=== PATIENT | female | born 1980 | race Caucasian/White ===

== ENCOUNTER 2024-07-30 15:33 | Outpatient (CLI) | payer OTHER | END 2024-07-30 16:50 | disposition home or self-care (01) | LOC: NST 15:33 | PROVIDERS: ATTEND Obstetrics & Gynecology Gynecology | DX: Z34.83 Encounter for supervision of other normal pregnancy, third trimester (principal) ==

== ENCOUNTER → 2024-08-19 13:36 | Outpatient (CLI) | payer OTHER | END | disposition home or self-care (01) | LOC: NST 13:36 | PROVIDERS: ATTEND Obstetrics & Gynecology Maternal & Fetal Medicine | DX: Z34.83 Encounter for supervision of other normal pregnancy, third trimester (principal) ==

== ENCOUNTER 2024-09-04 13:16 | Inpatient (IN) | payer OTHER ==
[~2024-09-04] VITALS: Ht 167.6 cm; Wt 104.3 kg
[2024-09-04] MEDS ORDERED: BETAMETHASONE ACETATE,SOD PHOS 30 MG/5 ML ML IM NR (15:15)
[2024-09-04] MEDS ORDERED: RINGERS SOLUTION,LACTATED 1,000 ML IV SCH (15:15)
[2024-09-04 15:26] VITALS: BP 130/82
[2024-09-04 16:20] LABS: HEMATOCRIT 36.4 % (36.0-45.00); HEMOGLOBIN 12.3 g/dL (12.0-15.00); MEAN CELL VOLUME 80.7 fL (80.00-100.00); MEAN CORPUSCULAR HEMOGLOBIN 27.3 pg (27.00-32.0); MEAN CORPUSCULAR HGB CONC 33.8 g/dl (32.0-36.0); PLATELET COUNT 205 K/uL (150-450); RED BLOOD COUNT 4.52 M/uL (4.00-6.00); RED CELL DISTRIBUTION WIDTH 15.7 % (11.5-14.5)
[2024-09-04 16:23] LABS: URINE APPEARANCE Clear; URINE BACTERIA 179.9 uL (0.0-1933); URINE BILIRRUBIN Negative (NEGATIVE); URINE BLOOD Negative; URINE COLOR Yellow; URINE EPITHELIAL CELLS 4.9 uL (0.0-38.8); URINE GLUCOSE Negative (NEGATIVE); URINE KETONE Negative (NEGATIVE); URINE LEUKOCYTE Negative; URINE NITRATE Negative; URINE PROTEIN Negative (NEGATIVE); URINE UROBILINOGEN 0.2 E.U./dl; URINE WBC 7.7 uL (0.0-23.2)
[2024-09-04 16:32] LABS: INR < 0.93; PARTIAL THROMBOPLASTIN TIME 25.1 SECONDS (22.0-34.0)
[2024-09-04 16:40] LABS: ALBUMIN 2.8 gm/dL (3.4-5.0); BILIRUBIN TOTAL 0.27 mg/dL (0.3-1.2); CALCIUM 9.9 mg/dL (8.5-10.1); CREATININE SERUM 0.59 mg/dL (0.55-1.02); GFR 109.73; GLOBULINA 3.5 G/DL (2.4-3.5); POTASSIUM 4.08 mEq/L (3.5-5.1); TOTAL PROTEIN 6.3 gm/dL (6.4-8.2)
[2024-09-04 16:48] LABS: URINE RBC 1.3 uL (0.0-20.8)
[2024-09-04 20:00] VITALS: BP 94/57
[2024-09-04] MEDS ORDERED: LABETALOL HCL100 MG PO (20:28)
[2024-09-04] MEDS ORDERED: OBSTETRIX ONE1 EAC1 PO (20:29)
[2024-09-04] MEDS ORDERED: ADULT LOW DOSE81 M1 PO (20:29)
[2024-09-04 23:51] VITALS: BP 112/70
[2024-09-05 04:48] VITALS: BP 126/81
[2024-09-05 07:10] VITALS: BP 130/80
[2024-09-05] MEDS ORDERED: ERYTHROMYCIN BASE OPHT 1GM EACH TUBE OP ONE (09:30)
[2024-09-05] MEDS ORDERED: OXYTOCIN 10 UNITS/ML VIAL IV ONE (09:30)
[2024-09-05] MEDS ORDERED: CEFAZOLIN SODIUM 1,000 MG VIAL IV NR (10:00)
[2024-09-05] MEDS ORDERED: MORPHINE SULFATE 4 MG/ML CARTRIDGE IV SCH (10:03)
[2024-09-05] MEDS ORDERED: OXYTOCIN 1,000 ML IV ONE (10:15)
[2024-09-05 11:35] VITALS: BP 118/78
[2024-09-05] MEDS ORDERED: KETOROLAC TROMETHAMINE 30 MG VIAL IV SCH (12:00)
[2024-09-05 14:33] VITALS: BP 131/68
[2024-09-05 16:00] VITALS: BP 137/79
[2024-09-05] MEDS ORDERED: BETAMETHASONE ACETATE,SOD PHOS 30 MG/5 ML ML IM ONE (16:00)
[2024-09-05 17:34] LABS: HEMATOCRIT 35.9 % (36.0-45.00); MEAN CELL VOLUME 82.1 fL (80.00-100.00); MEAN CORPUSCULAR HEMOGLOBIN 27.3 pg (27.00-32.0); MEAN CORPUSCULAR HGB CONC 33.3 g/dl (32.0-36.0); PLATELET COUNT 217 K/uL (150-450); RED BLOOD COUNT 4.38 M/uL (4.00-6.00); RED CELL DISTRIBUTION WIDTH 15.7 % (11.5-14.5)
[2024-09-05] MEDS ORDERED: ACETAMINOPHEN 500 MG GEL..CAP PO SCH (18:00)
[2024-09-05] MEDS ORDERED: LABETALOL HCL 100 MG TABLET PO SCH (18:03)
[2024-09-06] VITALS: BP 102/65
[2024-09-06 08:00] VITALS: BP 113/75
[2024-09-06] MEDS ORDERED: SIMETHICONE 125 MG CAPSULE PO SCH (09:00)
[2024-09-06] MEDS ORDERED: PNV,CALCIUM 72/IRON/FOLIC ACID 1 TAB TABLET PO SCH (09:00)
[2024-09-06] MEDS ORDERED: DOCUSATE SODIUM 100MG CAP PO SCH (09:00)
[2024-09-06] MEDS ORDERED: GABAPENTIN 300 MG CAPSULE PO SCH (09:00)
[2024-09-06 12:00] VITALS: BP 119/80
[2024-09-06] MEDS ORDERED: IBUprofen 600 MG TABLET PO SCH (12:00)
[2024-09-06 16:00] VITALS: BP 128/81; O2SAT 0
[2024-09-07 00:16] VITALS: BP 1006/69
[2024-09-07 08:02] VITALS: BP 102/68
[2024-09-07 12:53] VITALS: BP 98/66
[2024-09-07 19:42] VITALS: BP 117/77
[2024-09-07 21:29] VITALS: BP 123/75
[2024-09-08 00:03] VITALS: BP 129/87
[2024-09-08 05:15] VITALS: BP 112/74
[2024-09-08 08:42] VITALS: BP 124/81
== END 2024-09-08 13:39 | disposition home or self-care (01) | DRG 786 ==
LOC: NST 13:16 → LDR 15:03 → OB/GYN 15:03
PROVIDERS: Obstetrics & Gynecology Gynecology; ADMIT Obstetrics & Gynecology; ATTEND Obstetrics & Gynecology
PROC: 4A1HXCZ Monitoring of Products of Conception, Cardiac Rate, External Approach (ICD-10-PCS; 2024-09-04)
PROC: 10D00Z1 Extraction of Products of Conception, Low, Open Approach (ICD-10-PCS; principal; 2024-09-05 09:00)
DX: O36.8330 Maternal care for abnormalities of the fetal heart rate or rhythm, third trimester, not applicable or unspecified (principal); O60.14X0 Preterm labor third trimester with preterm delivery third trimester, not applicable or unspecified; Z3A.35 35 weeks gestation of pregnancy; Z37.0 Single live birth; Z20.822 Contact with and (suspected) exposure to COVID-19

== ENCOUNTER 2024-12-30 06:48 | Day surgery (SDC) | payer OTHER ==
[2024-12-24 09:16] LABS: HEMATOCRIT 40.4 % (36.0-45.00); HEMOGLOBIN 13.3 g/dL (12.0-15.00); MEAN CELL VOLUME 83.5 fL (80.00-100.00); MEAN CORPUSCULAR HEMOGLOBIN 27.5 pg (27.00-32.0); PLATELET COUNT 236 K/uL (150-450); RED BLOOD COUNT 4.83 M/uL (4.00-6.00); RED CELL DISTRIBUTION WIDTH 15.9 % (11.5-14.5)
[2024-12-24 09:29] LABS: URINE APPEARANCE Clear; URINE BILIRRUBIN Negative (NEGATIVE); URINE BLOOD Negative; URINE COLOR Yellow; URINE GLUCOSE Negative (NEGATIVE); URINE KETONE Negative (NEGATIVE); URINE LEUKOCYTE Trace; URINE NITRATE Negative; URINE PROTEIN Negative (NEGATIVE); URINE UROBILINOGEN 0.2 E.U./dl
[2024-12-24 09:30] LABS: URINE BACTERIA 343.8 uL (0.0-1933); URINE EPITHELIAL CELLS 19.7 uL (0.0-38.8); URINE WBC 25.4 uL (0.0-23.2)
[2024-12-24 09:32] VITALS: BP 120/75
[2024-12-24 09:34] LABS: URINE RBC 1.9 uL (0.0-20.8)
[2024-12-24 09:46] LABS: INR 0.94; PROTHROMBIN TIME 10.3 SECONDS (9.0-11.5)
[2024-12-24 09:57] LABS: ALBUMIN 3.7 gm/dL (3.4-5.0); BILIRUBIN TOTAL 0.47 mg/dL (0.3-1.2); CALCIUM 9.2 mg/dL (8.5-10.1); CREATININE SERUM 0.65 mg/dL (0.55-1.02); GFR 98.13; GLOBULINA 3.2 G/DL (2.4-3.5); POTASSIUM 4.26 mEq/L (3.5-5.1); TOTAL PROTEIN 6.9 gm/dL (6.4-8.2)
[~2024-12-30] VITALS: Ht 167.6 cm; Wt 100.2 kg
[~2024-12-30 06:48] MED LIST: ADULT LOW DOSE81 M1 PO; LABETALOL HCL100 MG PO; OBSTETRIX ONE1 EAC1 PO
[2024-12-30] MEDS ORDERED: POVIDONE-IODINE 118 ML BOTT TOP ONE (09:11)
[2024-12-30] MEDS ORDERED: CEFAZOLIN SODIUM 1,000 MG VIAL ONE (09:11)
[2024-12-30] MEDS ORDERED: SUGAMMADEX SODIUM 200 MG/2 ML VIAL IV ONE (10:14)
[2024-12-30] MEDS ORDERED: PROMETHAZINE HCL 50 MG/ML AMPUL IM ONE (10:45)
[2024-12-30] MEDS ORDERED: MORPHINE SULFATE 4 MG/ML VIAL IV PRN (10:45)
== END 2024-12-30 12:55 | disposition home or self-care (01) ==
LOC: U 06:48 → CIR.AMB 06:48
PROVIDERS: ATTEND Obstetrics & Gynecology Gynecology
DX: Z30.2 Encounter for sterilization (principal)